=== PATIENT | male | born 1930 | race Caucasian/White ===

== ENCOUNTER 2016-05-14 12:11 | Day surgery (SDC) | payer MEDICARE, OTHER ==
--- NOTE | ~2016-05-14 | EGD ---
EGD REPORT [facility] [address] [id number] NAME: CASTILLO VASQUEZ : 32 STATUS : REG 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 Estimated blood loss: None. Procedure: Pre-Anesthesia Assessment: - ASA Grade Assessment: III - A patient with severe systemic disease. After obtaining informed consent, the endoscope was passed under direct vision. Throughout the procedure, the patient's blood pressure, pulse, and oxygen saturations were monitored continuously. The GIF [id number] was introduced through the mouth, and advanced to the second part of duodenum. After obtaining informed consent, the endoscope was passed under direct vision. Throughout the procedure, the patient's blood pressure, pulse, and oxygen saturations were monitored continuously. The Endoscope was introduced through the mouth, with the intention of advancing to the esophagus. The scope was advanced to the hypopharynx before the procedure was aborted. Medications were given. Findings: Endoscopic Finding : A benign-appearing, intrinsic moderate stenosis measuring 2 cm (in length) was found and was traversed. There was minimal resistance passing standard upper endoscope. Could not pass the EUS scope. A small hiatus hernia was present. The exam of the stomach was otherwise normal. The examined duodenum was endoscopically normal. Impression: - Benign-appearing esophageal stricture. - Hiatus hernia. - Normal examined duodenum. Recommendation: - Return to previous diet. - Continue present medications. - Return to referring physician. Will need to find alternative method of biopsy due to the esophageal EGD REPORT [facility] [address] [id number] NAME: CASTILLO VASQUEZ : [birth year] STATUS : REG [facility] [place] PAT#: [id number] AGE: 85 ADM/REG DATE : 05/14/16 MR#: [id number] REPORT SERV DATE: 05/14/16 DICTATED BY: ANDREA BRAY DATE: 05/14/16 REPORT STATUS : Draft TRANSCRIBED BY: [employer] DATE: 05/14/16 stricture from prior lesion. Procedure Code(s): --- Professional --- 71373, Esophagogastroduodenoscopy, flexible, transoral; diagnostic, including collection of specimen(s) by brushing or washing, when performed (separate procedure) Diagnosis Code(s): --- Professional --- K22.2, Esophageal obstruction K44.9, Diaphragmatic hernia without obstruction or gangrene CPT copyright 2013 [employer]. All rights reserved. The codes documented in this report are preliminary and upon green prize packer review may be revised to meet current compliance requirements. ANDREA BRAY, 05/14/2016 1:49 PM Number of Addenda: 0 Note Initiated On: 05/14/2016 1:19 PM Scope Withdrawal Time 0 hours 0 minutes 0 seconds [address] [place] [address]
[~2016-05-14 12:11] MED LIST: B121000P IM; BACDS PO; COUMADIN6 MG; COZAAR100 MG PO; CYANO1000T PO; GLUCPH PO; JANTOVEN1 MG PO; LEVOTHYROXIN125 MCG PO; NORV5 PO; PEP20 PO; PRILO PO
[2016-05-14 13:12] LABS: INTERNATIONAL NORMAL RATI 1.1 UNITS (-); PROTIME (NOT ORD) 14.4 SEC (12.0-14.5)
== END 2016-05-14 23:59 | disposition home or self-care (01) ==
LOC: DMU 12:11
PROVIDERS: Anesthesiology; Internal Medicine Gastroenterology
PROC: 0DJ08ZZ Inspection of Upper Intestinal Tract, Via Natural or Artificial Opening Endoscopic (ICD-10-PCS; principal; 2016-05-14 14:00)
DX: K22.2 Esophageal obstruction (principal); K44.9 Diaphragmatic hernia without obstruction or gangrene; I10 Essential (primary) hypertension; E11.9 Type 2 diabetes mellitus without complications; I82.409 Acute embolism and thrombosis of unspecified deep veins of unspecified lower extremity; G47.33 Obstructive sleep apnea (adult) (pediatric); Z79.899 Other long term (current) drug therapy; Z79.01 Long term (current) use of anticoagulants
CPT/HCPCS: 82962; 85610; C1725